=== PATIENT | female | born 1985 | race Caucasian/White ===

== ENCOUNTER 2021-03-23 23:55 | Inpatient (IN) | payer OTHER ==
[2021-03-24] MEDS ORDERED: ELECTROLYTE-148 SOLN 500 ML IV ONE (01:05)
[2021-03-24] MEDS ORDERED: ELECTROLYTE-148 SOLN 500 ML IV SCH (02:00)
[2021-03-24 03:00] VITALS: BMI 32.0
[2021-03-24 03:01] LABS: BASO % 0.5 % (0-2.0); EOS % 1.3 % (0-4.5); HEMATOCRIT 32.3 % (32.4-45.2); HEMOGLOBIN 10.9 GM/dL (10.7-15.3); LYMPH % 34.8 % (8-40); MCH 31.1 pg (25.7-33.7); MCHC 33.9 g/dl (32.0-36.0); MEAN CELL VOLUME 91.8 fl (80-96); MEAN PLT VOLUME 10.2 fl (7.5-11.1); MONO % 4.4 % (3.8-10.2); PLATELET COUNT 160 K/MM3 (134-434); RBC 3.51 M/mm3 (3.60-5.2); RDW 14.9 % (11.6-15.6); WHITE BLOOD COUNT 8.5 K/mm3 (4.0-10.0)
[2021-03-24 03:21] LABS: INR 0.85 (0.83-1.09); PROTHROMBIN TIME (PATIENT) 10.5 SEC (9.7-13.0)
[2021-03-24 03:23] LABS: ACTIVATED PTT 27.2 SECONDS (25.2-36.5); CALCIUM 8.2 mg/dL (8.5-10.1)
[2021-03-24 03:24] LABS: BLOOD UREA NITROGEN 13.4 mg/dL (7-18)
[2021-03-24 03:27] LABS: CREATININE 0.5 mg/dL (0.55-1.3)
[2021-03-24] MEDS ORDERED: DINOPROSTONE 10 MG VAGINAL SUPPOSITORY VG ONE (03:45)
[2021-03-24] MEDS ORDERED: MISOPROSTOL 100 MCG TABLET PO ONE (05:00)
[2021-03-24] MEDS ORDERED: PROMETHAZINE HCL 25 MG/1 ML VIAL ONE (07:35)
[2021-03-24] MEDS ORDERED: PROMETHAZINE HCL 25 MG/1 ML VIAL IVPB ONE (07:35)
[2021-03-24] MEDS ORDERED: BUTORPHANOL TARTRATE 2 MG/ML VIAL IVPB ONE (07:35)
[2021-03-24] MEDS ORDERED: BUTORPHANOL TARTRATE 2 MG/ML VIAL ONE (07:35)
[2021-03-24] MEDS ORDERED: OXYTOCIN 20 UNITS in 0.9% NS 20 UNIT/1,000 ML INFUS.BAG IV ONE (08:26)
[2021-03-24] MEDS ORDERED: OXYTOCIN 30 UNITS in 0.9% NS 30 UNIT/500 ML INFUS.BAG IVPB ONE (08:26)
[2021-03-24] MEDS ORDERED: OXYTOCIN 30 UNITS in 0.9% NS 30 UNIT/500 ML INFUS.BAG IVPB SCH (09:15)
[2021-03-24] MEDS ORDERED: METHYLERGONOVINE MALEATE 0.2 MG/1 ML AMP IM PRN (09:26)
[2021-03-24] MEDS ORDERED: BISACODYL 10 MG SUPP.RECT RC PRN (09:26)
[2021-03-24] MEDS ORDERED: BENZOCAINE 20% 57 GM BOTTLE TP PRN (09:26)
[2021-03-24] MEDS ORDERED: WITCH HAZEL 50% (TUCKS) 40 PAD/JAR PAD TP PRN (09:26)
[2021-03-24] MEDS ORDERED: BENZOCAINE 28 GM HEMORRHOIDAL OINTMENT TP PRN (09:26)
[2021-03-24] MEDS ORDERED: D5W-LR W/ 20 UNITS OXYTOCIN 20 UNIT/1,000 ML INFUS.BAG IV SCH (09:30)
[2021-03-24] MEDS: PRENATAL VITAMINS W/ FOLIC ACID TABLET (FP) PO SCH ×2 (10:00→15:37)
[2021-03-24] MEDS: IBUPROFEN 600 MG TABLET (FP) PO PRN (13:05)
[2021-03-24] MEDS: FERROUS SO4 325 MG TABLET (FP) PO SCH ×2 (15:37→21:10)
[2021-03-24] MEDS: SENNOSIDES/DOCUSATE COMBO (SENNA PLUS) TABLET (UD) PO PRN (20:28)
[2021-03-25] MEDS: IBUPROFEN 600 MG TABLET (FP) PO PRN ×2 (08:22→17:56)
[2021-03-25] MEDS: ACETAMINOPHEN 325 MG TABLET (FP) PO PRN ×2 (08:22→17:56)
[2021-03-25 09:24] LABS: BASO % 0.2 % (0-2.0); EOS % 0.7 % (0-4.5); HEMATOCRIT 27.5 % (32.4-45.2); HEMOGLOBIN 9.3 GM/dL (10.7-15.3); LYMPH % 22.7 % (8-40); MCH 31.2 pg (25.7-33.7); MCHC 33.8 g/dl (32.0-36.0); MEAN CELL VOLUME 92.3 fl (80-96); MEAN PLT VOLUME 9.6 fl (7.5-11.1); MONO % 2.1 % (3.8-10.2); NEUT % 74.3 % (42.8-82.8); PLATELET COUNT 138 K/MM3 (134-434); RBC 2.98 M/mm3 (3.60-5.2); RDW 15.4 % (11.6-15.6); WHITE BLOOD COUNT 11.7 K/mm3 (4.0-10.0)
[2021-03-25] MEDS: PRENATAL VITAMINS W/ FOLIC ACID TABLET (FP) PO SCH ×2 (09:55→10:37)
[2021-03-25] MEDS: FERROUS SO4 325 MG TABLET (FP) PO SCH ×2 (09:55→21:28)
[2021-03-25] MEDS: SENNOSIDES/DOCUSATE COMBO (SENNA PLUS) TABLET (UD) PO PRN (21:29)
[2021-03-26] MEDS: FERROUS SO4 325 MG TABLET (FP) PO SCH (09:37)
[2021-03-26] MEDS: PRENATAL VITAMINS W/ FOLIC ACID TABLET (FP) PO SCH (09:37)
[2021-03-26] MEDS: IBUPROFEN 600 MG TABLET (FP) PO PRN (09:38)
[2021-03-26] MEDS: ACETAMINOPHEN 325 MG TABLET (FP) PO PRN (09:38)
[2021-03-26 11:08] VITALS: BP 118/78; PULSE 96; TEMP 97.6
== END 2021-03-26 13:30 | disposition home or self-care (01) | DRG 560 ==
LOC: JDEL 23:55 → JLDR 03-24 01:58 → J3W 03-24 13:45
PROVIDERS: ADMIT Internal Medicine; ATTEND Internal Medicine
PROC: 10E0XZZ Delivery of Products of Conception, External Approach (ICD-10-PCS; principal; 2021-03-24)
DX: O80 Encounter for full-term uncomplicated delivery (principal); Z3A.38 38 weeks gestation of pregnancy; Z37.0 Single live birth
CPT/HCPCS: 36415; 59025; 59409; 80048; 85025; 85610; 85730; 86780; 86850; 86900; 86901; C9803; U0003; U0005